=== PATIENT | male | born 1950 | race Caucasian/White ===

== ENCOUNTER → 2017-01-02 | Outpatient (CLI) | payer SELFPAY | LOC: FIMAGING 09:16 | PROVIDERS: ATTEND Specialist | DX: Z12.89 Encounter for screening for malignant neoplasm of other sites (principal); C61 Malignant neoplasm of prostate; M25.552 Pain in left hip | CPT/HCPCS: A9503 ==

== ENCOUNTER 2017-02-22 07:09 | Inpatient (IN) | payer OTHER ==
--- NOTE | 2017-02-21 14:47 | GHP ---
[f rep st] PREOP HISTORY AND PHYSICAL DATE OF ADMISSION: 02/22/2017 ADMISSION DIAGNOSIS: Prostate cancer. This is a 66-year-old gentleman, who presented with an elevated PSA of 23.9, and he had had a PSA of 14 in 2014. He had a prostate biopsy that revealed a Karishma score 7 cancer. He had a PSA density of 0.53. Prostate biopsy estimated gland size was 45 g. He had a bone scan with no metastasis and he declined genomic testing. At the present time, after consultation, he has elected to undergo ro botic-assisted radical prostatectomy. He has no preoperative erectile dysfunction. He has no genit ourinary symptoms, other than a weak flow and nocturia. He had had an AUA score preoperatively that showed a total score of 17, quality of life score was 3/mixed. PAST MEDICAL HISTORY: Hip pain, kidney stones, nocturia. PAST SURGICAL HISTORY: Shoulder surgery, and the ultrasound and biopsy of the prostate. MEDICATIONS: Have been a low-dose medication for blood pressure. ALLERGIES: None. FAMILY HISTORY: Positive for prostate cancer. SOCIAL HISTORY: Non alcohol consumption. Former smoker. . Self-employed. REVIEW OF SYSTEMS: Negative cardiac, respiratory, GI, endocrine, musculoskeletal. PHYSICAL EXAM: VITAL SIGNS: Stable. CHEST: Clear. HEART: Regular rate and rhythm. ABDOMEN: N ormal. No organomegaly, rebound, or guarding. EXTREMITIES: Lower extremities are normal. : On exam, his prostate was approximately 55 g, and it appeared to be symmetric, and the pathology revea led that he had Karishma score 3+4 cancer in the left prostate at the transition zone and at the post erior base on the left. Right apex had a small focus of [place] score 6 cancer. There is no docume nted perineural invasion and the seminal vesicles have not been biopsied. At the present time, after discussing options of therapy, he has elected to undergo bilateral pelvic lymphadenectomy and radical retropubic prostatectomy. The complications of bleeding, infection, in ability to remove all the malignancy, need for adjuvant therapy, and urinary control and sexual dysf unction issues have been outlined. He appears to understand, written and verbal consent was demian d. He is admitted for the above procedure. /[id number]/MODL
[2017-02-22] MEDS ORDERED: ceFAZolin 2 GM/DEXTROSE 100 ML IV ONE (07:16)
--- NOTE | 2017-02-22 07:16 | PDHPUP ---
History & Physical Update H&P update statement: This history and physical update is based on an assessment of the patient which was completed after admission or registration (within 24 hours), but prior to the surgery/procedure. H&P update: H&P reviewed & patient examined
[2017-02-22] MEDS ORDERED: LR 1,000 ML IV ONE (07:36)
[2017-02-22] MEDS ORDERED: LIDOCAINE 1% 2 ML INJ ID PRN (07:36)
[2017-02-22] MEDS ORDERED: BUPIVACAINE 0.5% 30 ML SDV ONE (08:11)
[2017-02-22] MEDS ORDERED: MIDAZOLAM 2 MG/2 ML VIAL IVP ONE (09:10)
--- NOTE | 2017-02-22 09:15 | PDANEPAE ---
ANE Past Medical History - Cardiovascular History Hx Hypertension: Yes Hx Arrhythmias: No Hx Chest Pain: No Hx Coronary Artery / Peripheral Vascular Disease: No Hx CHF / Valvular Disease: No Hx Palpitations: No Cardiovascular History Comment: on Lisinopril x 3 mos-well controlled - Pulmonary History Hx COPD: No Hx Asthma/Reactive Airway Disease: No Hx Recent Upper Respiratory Infection: No Hx Oxygen in Use at Home: No Hx Sleep Apnea: No Sleep Apnea Screening Result - Last Documented: Negative - Neurologic History Hx Cerebrovascular Accident: No Hx Seizures: No Hx Dementia: No - Endocrine History Hx Diabetes: No Hypothyroid: No Hyperthyroid: No Obesity: no - Renal History Hx Renal Disorders: Yes Renal History Comment: PSA elevated. Prostate bx 12-25-16 :Prostate cancer. - Liver History Hx Hepatic Disorders: No - Neurological & Psychiatric Hx Hx Neurological and Psychiatric Disorders: No - Cancer History Hx Cancer: Yes Cancer History Comment: prostate - Congenital Disorder History Hx Congenital Disorders: No - GI History GERD: no Hx Gastrointestinal Disorders: No - Other Health History Other Health History: OA - L hip pain appro 1 yr. - Chronic Pain History Chronic Pain: Yes (L hip) - Surgical History Prior Surgeries: surgery for shoulder separation ;. R hand sx; ANE Review of Systems - Exercise capacity METS (RN): 4 METS ANE Patient History - Allergies Allergies/Adverse Reactions: No Known Allergies Allergy (Verified 02/07/17 10:04) - Home Medications Home Medications: Acetaminophen [Tylenol 325mg (*)] 650 mg PO DAILY PRN 02/05/17 [Last Taken 02/21] Lisinopril [Zestril 5 mg (*)] 5 mg PO DAILY 02/05/17 [Last Taken 02/22/17] - NPO status NPO Since - Liquids (Date): 02/21/17 NPO Since - Liquids (Time): 15:00 NPO Since - Solids (Date): 02/21/17 NPO Since - Solids (Time): 15:00 - Anes Hx Anes Hx: no prior problems - Smoking Hx Smoking Status: Former smoker - Family Anes Hx Family Hx Anesthesia Complications: not aware of ANE Labs/Vital Signs - Vital Signs Blood Pressure: 125/83 Heart Rate: 63 Respiratory Rate: 16 O2 Sat (%): 98 Height: 172.72 cm Weight: 77.111 kg ANE Physical Exam - Airway Neck exam: FROM Mallampati Score: Class 1 Mouth exam: normal dental/mouth exam - Pulmonary Pulmonary: no respiratory distress - Cardiovascular Cardiovascular: regular rate and rhythym, no murmur, rub, or gallop - ASA Status ASA Status: II ANE Anesthesia Plan Anesthesia Plan: general endotracheal anesthesia
[2017-02-22] MEDS ORDERED: MIDAZOLAM 2 MG/2 ML VIAL ONE (09:21)
[2017-02-22] MEDS ORDERED: REMIFENTANIL HCL 1 MG VIAL ONE (09:28)
[2017-02-22] MEDS ORDERED: PROPOFOL 200 MG/20 ML VIAL ONE (09:28)
[2017-02-22] MEDS ORDERED: DEXAMETHASONE 4 MG/ML VIAL ONE (09:28)
[2017-02-22] MEDS ORDERED: fentaNYL 100 MCG/2 ML INJ ONE ×3 (09:28→12:47)
[2017-02-22] MEDS ORDERED: LIDOCAINE 2% 5 ML SDV ONE (09:29)
[2017-02-22] MEDS ORDERED: ROCURONIUM 50 MG/5 ML VIAL ONE ×2 (09:29→10:27)
[2017-02-22] MEDS ORDERED: ONDANSETRON 4 MG/2 ML VIAL ONE (09:29)
[2017-02-22] MEDS ORDERED: THROMBIN(HUM PLAS)/FIBRINOG/CA 5 ML VIAL TP ONE ×2 (11:18→11:25)
[2017-02-22] MEDS ORDERED: SUGAMMADEX SODIUM 200 MG/2 ML VIAL IVP ONE (11:48)
[2017-02-22] MEDS ORDERED: D5W LR 500 ML IV PRN (11:54)
[2017-02-22] MEDS ORDERED: OXYCODONE/APAP 5/325 TAB PO PRN ×2 (11:54→12:08)
[2017-02-22] MEDS ORDERED: ONDANSETRON 4 MG/2 ML VIAL IVP PRN ×2 (11:54→12:08)
[2017-02-22] MEDS ORDERED: NALOXONE HCL 0.4 MG/ML INJ IVP PRN ×2 (11:54→12:08)
[2017-02-22] MEDS ORDERED: HYDROCODONE/APAP 5/325 TAB PO PRN (11:54)
[2017-02-22] MEDS ORDERED: ACETAMINOPHEN 500 MG TAB PO PRN (11:54)
[2017-02-22] MEDS ORDERED: MEPERIDINE 25 MG/ML SYR IVP PRN (11:54)
[2017-02-22] MEDS ORDERED: PROMETHAZINE HCL 25 MG/ML INJ IVP PRN (11:54)
[2017-02-22] MEDS ORDERED: KETOROLAC 30 MG/1 ML SDV ONE (11:59)
[2017-02-22] MEDS ORDERED: ZOLPIDEM TARTRATE 5 MG TAB PO PRN (12:08)
[2017-02-22] MEDS ORDERED: ACETAMINOPHEN 325 MG TAB PO PRN (12:08)
[2017-02-22] MEDS ORDERED: HYDROmorphONE/DILAUDID 6 MG/30 ML PCA IV PRN (12:08)
[2017-02-22] MEDS ORDERED: ONDANSETRON DISINTEGRATING 4 MG TAB PO PRN (12:08)
--- NOTE | 2017-02-22 12:17 | POSTOPPROG ---
Post Op Note Date of Operation: 02/22/17 Surgeon: Basil Romo Machine Captain: Leann Anesthesiologist: Ambreen Anesthesia: GET(General Endotracheal) Pre-op Diagnosis: prostate cancer Post-op Diagnosis: dictated Procedure: RA-RRP and PLND Inf/Abcess present in the surg proc area at time of surgery?: No EBL: 50-100 Complications: none Drains: Jonnathan Carrasco (and barfield) Specimen(s): prostate, SV and nodes
[2017-02-22] MEDS: fentaNYL 100 MCG/2 ML INJ IVP PRN ×2 (12:49→12:54)
--- NOTE | 2017-02-22 13:01 | GOP ---
[f rep st] OPERATIVE REPORT DATE OF OPERATION: SURGEON: Basil Romo MD GARMENT WORKER: Brenda Noriega CFA. ANESTHESIOLOGIST: Skyler Lima DO. PREOPERATIVE DIAGNOSIS: Adenocarcinoma of the prostate. POSTOPERATIVE DIAGNOSIS: Adenocarcinoma of the prostate. PROCEDURE PERFORMED: 1. Robotic-assisted radical retropubic prostatectomy. 2. Pelvic lymph node dissection. FINDINGS: ESTIMATED BLOOD LOSS: 50 mL per anesthesia. He will be admitted for postoperative care. I will discuss the issues with his family. INDICATIONS: Preoperatively, I discussed with him the diagnosis, stage, and options of therapy, and after appropriate counseling, he elected to undergo radical prostatectomy. Complications of bleedi ng, infection, incontinence, impotence, bowel perforation, and need for further surgery have all bee n discussed. Written and verbal consent was obtained, and he appeared to be well informed. I attem pted to answer all questions to the best of my ability. His was not at any of the discussions because she did not want to be in anyone's way. That was interpretation the interpretation. I will make an effort to communicate with her postoperatively on the appropriateness of therapy for this d iagnosis and go over the surgical procedure results. DESCRIPTION OF PROCEDURE: After undergoing general anesthesia, prepped and draped in normal sterile fashion, the robotic position for pelvic surgery, and appropriate time-out, he had a Veress needle placed supraumbilically and his intraabdominal pressure was inflated to 15 mmHg pressure with CO2. Then he had a camera port placed in that site and a 12 mm payroll human resources assistant port placed to the left of the m idclavicular line on the left abdomen. Then 3 robotic arm ports of 8 mm were placed, all under visi on, and there was no intraabdominal trauma related to any of these port placements. At that point, mobilize the sigmoid colon because it had adhesions. I then was able to incise the peritoneum just at the ampulla of vas deferens and seminal vesicles, dissected those out, and hemostasis provided wi th Hem-o-loks. Then I had divided the vas deferens bilaterally and mobilized the space between the prostate and rectum making care not to cause any injury to the rectum. At that point, focused our a ttention to the anterior part of the dissection by dropping down the bladder and incising the endope lvic fascia on the right and left sides, the puboprostatics taken down sharply. Then the deep dorsa l vein was ligated with 2 M stitch 0 Vicryl sutures, and the catheter was mobile after placing that stitch. At that point, focused attention to the bladder neck, and that was incised. The prostate w as quite large, and the bladder neck was patulous after excising it. I was able to mobilize the bas e of the bladder off the base of the prostate, bring the seminal vesicle and ampulla of vas deferens anterior to the bladder neck. Then the right pedicle was taken down with Hem-o-loks and dissection . In the left side, similar attempts to preserve the neurovascular bundles. I then focused attenti on to the apex of the prostate. That was dissected out. At the end of the procedure, there was no obvious gross disease noted in the operative site. I approximated the bladder neck with 2 lateral s utures of 3-0 Vicryl, and then a Ambrosio stitch of V-Loc was used to approximate the rectal urethralis to the posterior bladder. Then the urethrovesical anastomosis was performed with a 4-0 Monocryl. All of this dissection appeared not to compromise the ureteral orifices or the ureters, and the rect um was intact with no suggestion of injury. At that point, focused our attention to the pelvic lymp h nodes, the left side being taken down first. The dissection margin was the mid aspect of the exte rnal iliac vein at its bifurcation. The obturator nerve was the depth of that dissection. Hemostas is was provided Hem-o-loks. There was no gross luke disease on the left side or the right side. S imilar dissection pattern, there were several nodes that were a bit inflammatory grossly, but there was nothing fixed or suggestion of malignancy. At that point, dropped the pressure to 5 mmHg. Ther e was no bleeding identified. Bladder gel material was placed at the anastomotic area, which had be en irrigated and noted to be watertight. Then a Jonnathan-Carrasco drain was placed in the space of Retz ius. Specimens were placed in the intraoperative bag, and then a drain was brought out through the 8 mm left-sided robot port. The payroll human resources assistant port was closed with a suture closure device. Then the s gerin brought through the supraumbilical site, which had made an incision from right to left in th e fascia, and then closed the fascia and the linea alba with a running 0 Vicryl. Subcutaneous tissu e was irrigated all sites, and 4-0 Monocryl was used to close the skin edges. The drain was sewn in place with a 3-0 silk. He tolerated the procedure well. /[id number]/MODL
--- NOTE | 2017-02-22 13:38 | POSTANESTH ---
Post Anesthetic Evaluation Cardiovascular Status: Normal, Stable Respiratory Status: Normal, Stable Level of Consciousness/Mental Status: Can Participate in Eval Pain Control: Adequate, Prn Tx Ordered Nausea/Vomiting Control: Adequate, Prn Tx Ordered Complications Possibly Related to Anesthesia: None Noted
[2017-02-22] MEDS: POTASSIUM Cl (KCl) 20 MEQ in 1/2 NS 1,000 ML IV SCH ×2 (13:51→23:05)
--- NOTE | 2017-02-22 16:10 | SOAPPROG ---
SOAP Progress Note Assessment/Plan: Assessment: Prostate cancer Acute PO check doing well Plan: cont post op care 02/22/17 16:05 Subjective: doing well Objective: Vital Signs Temp Pulse Resp BP Pulse Ox 37.0 C 85 18 133/80 H 90 L 02/22/17 14:13 02/22/17 14:13 02/22/17 14:13 02/22/17 14:13 02/22/17 14:13 Laboratory Results 02/22/17 12:45 02/21/17 02/22/17 02/23/17 05:59 05:59 05:59 Intake Total 1800 Output Total 70 Balance 1730 Physical Exam - Physical Exam General Appearance: alert Respiratory: No respiratory distress Cardiac/Chest: regular rate, rhythm Neuro/Psych: alert, oriented x 3 ICD10 Worksheet Patient Problems: Problems Problem Status Onset Prostate cancer Acute - ICD10 Problem Qualifiers (1) Prostate cancer
[2017-02-22 16:39] VITALS: RESP 16
[2017-02-23 04:56] LABS: % IMMATURE GRANULYOCYTES 0.4 % (0.0-1.1); ABSOLUTE IMMATURE GRANULOCYTES 0.03 10^3/uL (0.00-0.10); ADD DIFF? NO; ADD MORPH? NO; ADD SCAN? NO; ATYPICAL LYMPHOCYTE FLAG 0 (0-99); FRAGMENT RBC FLAG 0 (0-99); HEMATOCRIT 43.3 % (40.0-51.0); HEMOGLOBIN 14.7 g/dL (13.7-17.5); LEFT SHIFT FLG 0 (0-99); LIPEMIA HEMOLYSIS FLAG 90 (0-99); MEAN CELL HEMOGLOBIN 30.6 pg (27.9-34.1); MEAN CELL HEMOGLOBIN CONCENTR. 33.9 g/dL (32.4-36.7); MEAN CELL VOLUME 90.2 fL (81.5-99.8); MEAN PLATELET VOLUME 9.7 fL (8.7-11.7); PLATELET CLUMPS FLAG 0 (0-99); PLATELET COUNT 237 10^3/uL (150-400); RED CELL DISTRIBUTION WIDTH 12.9 % (11.5-15.2)
[2017-02-23 05:09] LABS: ANION GAP 9 mEq/L (8-16); CALCIUM 9.1 mg/dL (8.5-10.4); CARBON DIOXIDE 26 mEq/l (22-31); CHLORIDE 102 mEq/L (97-110); GLOMERULAR FILTRATION RATE > 60; GLUCOSE 93 mg/dL (70-100); POTASSIUM 5.2 mEq/L (3.5-5.2); SODIUM 137 mEq/L (134-144)
--- NOTE | 2017-02-23 07:32 | SOAPPROG ---
SOAP Progress Note Assessment/Plan: Assessment: Prostate cancer Acute POD #1 doing well Plan: cont post op care, DC home no pain meds 02/23/17 13:57 Subjective: doing well, gas noted, home seems ok Objective: Vital Signs Temp Pulse Resp BP Pulse Ox 36.9 C 78 16 119/77 93 02/23/17 07:24 02/23/17 07:24 02/23/17 07:24 02/23/17 07:24 02/23/17 07:24 Laboratory Results 02/23/17 04:33 02/23/17 04:33 02/22/17 02/23/17 02/24/17 05:59 05:59 05:59 Intake Total 3660 1212 Output Total 2480 Balance 1180 1212 Physical Exam - Physical Exam General Appearance: WD/WN Neck: supple Respiratory: No respiratory distress Cardiac/Chest: regular rate, rhythm Abdomen: soft Back: No CVA tenderness Extremities: non-tender, No calf tenderness, No Qiana's sign Neuro/Psych: alert, oriented x 3 ICD10 Worksheet Patient Problems: Problems Problem Status Onset Prostate cancer Acute - ICD10 Problem Qualifiers (1) Prostate cancer
[2017-02-23] MEDS ORDERED: LISINOPRIL 5 MG TAB PO SCH (09:00)
[2017-02-23 11:34] VITALS: BP 104/69; PULSE 90; TEMP 98; O2SAT 90
--- NOTE | 2017-02-23 16:46 | ASDISCHSUM ---
Discharge Information Plan Status:Home with No Needs Medically Cleared to Leave: Discharge Date:02/23/2017 03:50 PM CM D/C Disposition:Home, Routine, Self-Care ADT D/C Disposition:Home, Routine, Self-Care Projected Discharge Date:02/23/2017 03:50 PM Transportation at D/C:Family Discharge Delay Reason: Follow-Up Date:02/23/2017 03:50 PM Discharge Slot: Final Diagnosis: Placement Information Patient Contact Information Contact Name:TIARRA Relationship: Address:[address] Work Phone: [facility]:[place] Alternate Phone: [facility]/Zip Code:[place] [address] Email: Financial Information Financial Class:HMO and PPO Plans Primary Plan Desc:DELFINO SHABAZZ Primary Plan Number:[id number] Secondary Plan Desc: Secondary Plan Number: Assessment Information Intervention Information
== END 2017-02-23 15:50 | disposition home or self-care (01) | DRG 708 ==
LOC: F3N 07:09 → F1N 07:47
PROVIDERS: ADMIT Specialist; ATTEND Specialist
DX: C61 Malignant neoplasm of prostate (principal); I10 Essential (primary) hypertension; Z87.891 Personal history of nicotine dependence
CPT/HCPCS: J0690; J1100; J1885; J2250; J2405; J2704; J3010

== ENCOUNTER 2018-01-04 07:15 | Inpatient (IN) | payer OTHER ==
--- NOTE | 2018-01-04 06:22 | PDHPUP ---
History & Physical Update H&P update statement: This history and physical update is based on an assessment of the patient which was completed after admission or registration (within 24 hours), but prior to the surgery/procedure. H&P update: H&P reviewed & patient examined, no change in patient's condition since H&P completed
[~2018-01-04 07:15] MED LIST: ROPIVACAINE 0.2% 80 MG, EPINEPHrine 0.2 MG, KETOROLAC TROMETHAMINE 30 MG in SYRINGE 0 ML IU ONE; TRANEXAMIC ACID 3,000 MG in NS (SYRINGE) 50 ML IRR ONE
[2018-01-04] MEDS ORDERED: TRANEXAMIC ACID 3,000 MG/50 ML BAG IRR ONE (09:28)
[2018-01-04] MEDS ORDERED: ACETAMINOPHEN 325 MG TAB PO ONE (10:25)
[2018-01-04] MEDS ORDERED: FAMOTIDINE 20 MG TAB PO ONE (10:25)
[2018-01-04] MEDS ORDERED: DEXAMETHASONE 4 MG/ML VIAL IVP ONE (10:25)
[2018-01-04] MEDS ORDERED: ceFAZolin 2 GM/DEXTROSE 100 ML IV ONE (10:25)
[2018-01-04] MEDS ORDERED: LR 1,000 ML IV ONE (10:28)
--- NOTE | 2018-01-04 11:44 | PDANEPAE ---
ANE History of Present Illness L VANDANA ANE Past Medical History - Cardiovascular History Hx Hypertension: Yes Hx Arrhythmias: No Hx Chest Pain: No Hx Coronary Artery / Peripheral Vascular Disease: No Hx CHF / Valvular Disease: No Hx Palpitations: No Cardiovascular History Comment: on Lisinopril x 3 mos-well controlled - Pulmonary History Hx COPD: No Hx Asthma/Reactive Airway Disease: No Hx Recent Upper Respiratory Infection: No Hx Oxygen in Use at Home: No Hx Sleep Apnea: No Sleep Apnea Screening Result - Last Documented: Negative - Neurologic History Hx Cerebrovascular Accident: No Hx Seizures: No Hx Dementia: No - Endocrine History Hx Diabetes: No - Renal History Hx Renal Disorders: Yes Renal History Comment: Prostate bx 12-25-16 - Liver History Hx Hepatic Disorders: No - Neurological & Psychiatric Hx Hx Neurological and Psychiatric Disorders: No - Cancer History Hx Cancer: Yes Cancer History Comment: prostate - Congenital Disorder History Hx Congenital Disorders: No - GI History Hx Gastrointestinal Disorders: No - Other Health History Other Health History: OA - L HIP - Chronic Pain History Chronic Pain: Yes (L hip) - Surgical History Prior Surgeries: PROSTATECTOMY. surgery for shoulder separation ;. R hand sx; ANE Review of Systems Review of Systems: - Exercise capacity METS (RN): 4 METS ANE Patient History - Allergies Allergies/Adverse Reactions: No Known Allergies Allergy (Verified 02/07/17 10:04) - Home Medications Home Medications: Lisinopril [Zestril 5 mg (*)] 5 mg PO DAILY 02/05/17 [Last Taken 01/03/18] Cyclobenzaprine [Flexeril 10 MG (*)] 10 mg PO TID PRN 01/04/18 [Last Taken Unknown] celeCOXIB [Celebrex (*)] 200 mg PO DAILY 01/04/18 [Last Taken Unknown] oxyCODONE IR [Oxycodone Ir (*)] 5 mg PO Q3-4PRN PRN 01/04/18 [Last Taken Unknown ] - NPO status NPO Status: no food or drink >8 hours NPO Since - Liquids (Date): 01/04/18 NPO Since - Liquids (Time): 08:30 NPO Since - Solids (Date): 01/03/18 NPO Since - Solids (Time): 12:00 - Anes Hx Anes Hx: no prior problems - Smoking Hx Smoking Status: Former smoker - Alcohol Use Alcohol Use: None - Family Anes Hx Family Anes Hx: none Family Hx Anesthesia Complications: NEG ANE Labs/Vital Signs - Vital Signs Blood Pressure: 136/99 Heart Rate: 84 Respiratory Rate: 16 O2 Sat (%): 96 Height: 170.18 cm Weight: 83.915 kg ANE Physical Exam - Airway Neck exam: FROM Mallampati Score: Class 2 Mouth exam: normal dental/mouth exam - Pulmonary Pulmonary: no respiratory distress, clear to auscultation - Cardiovascular Cardiovascular: regular rate and rhythym, no murmur, rub, or gallop - ASA Status ASA Status: II ANE Anesthesia Plan Anesthesia Plan: GA with mask, spinal
[2018-01-04] MEDS ORDERED: MIDAZOLAM 2 MG/2 ML VIAL IVP ONE (11:45)
[2018-01-04] MEDS ORDERED: PROPOFOL/EMULSION 500 MG/50 ML BOTTLE IV ONE ×2 (12:05→13:13)
--- NOTE | 2018-01-04 13:42 | POSTOPPROG ---
Post Op Note Date of Operation: 01/04/18 Surgeon: Bhanu Miguel Fabrication And Layout Craftsman: broderick miguel Anesthesiologist: dr. veliz Anesthesia: Spinal Pre-op Diagnosis: left hip OA Post-op Diagnosis: same Indication: left hip pain Procedure: L VANDANA ant approach Findings: severe hip OA Inf/Abcess present in the surg proc area at time of surgery?: No EBL: 100-500
[2018-01-04] MEDS ORDERED: METOCLOPRAMIDE 10 MG/2 ML VIAL IVP PRN (13:43)
[2018-01-04] MEDS ORDERED: TEMAZEPAM 15 MG CAP PO PRN (13:43)
[2018-01-04] MEDS ORDERED: BISACODYL 10 MG SUPP PR PRN (13:43)
[2018-01-04] MEDS ORDERED: diphenhydrAMINE 25 MG CAP PO PRN (13:43)
[2018-01-04] MEDS ORDERED: PROMETHAZINE HCL 25 MG SUPPR PR PRN (13:43)
[2018-01-04] MEDS ORDERED: ONDANSETRON DISINTEGRATING 4 MG TAB PO PRN (13:43)
[2018-01-04] MEDS ORDERED: PROMETHAZINE HCL 25 MG/ML INJ IVP PRN (13:43)
[2018-01-04] MEDS ORDERED: MAGNESIUM HYDROXIDE 30 ML UDCUP PO PRN (13:43)
[2018-01-04] MEDS ORDERED: LACTULOSE 20 GM/30 ML UDCUP PO PRN (13:43)
[2018-01-04] MEDS ORDERED: ONDANSETRON 4 MG/2 ML VIAL IVP PRN ×2 (13:43→13:50)
[2018-01-04] MEDS ORDERED: DIPHENOXYLATE/ATROPINE LOMOTIL 1 TAB PO PRN (13:43)
[2018-01-04] MEDS ORDERED: POLYETHYLENE GLYCOL 3350 17 GM PKT PO PRN (13:43)
[2018-01-04] MEDS ORDERED: CYCLOBENZAPRINE 10 MG TAB PO PRN (13:43)
[2018-01-04] MEDS ORDERED: oxyCODONE IR 5 MG TAB PO PRN (13:50)
[2018-01-04] MEDS ORDERED: NALOXONE HCL 0.4 MG/ML INJ IVP PRN (13:50)
[2018-01-04] MEDS ORDERED: HYDROmorphONE/DILAUDID 1 MG/ML INJ IVP PRN (13:50)
[2018-01-04] MEDS ORDERED: ACETAMINOPHEN 500 MG TAB PO PRN (13:50)
[2018-01-04] MEDS ORDERED: fentaNYL 100 MCG/2 ML INJ IVP PRN (13:50)
[2018-01-04] MEDS ORDERED: HYDROCODONE/APAP 5/325 TAB PO PRN (13:50)
--- NOTE | 2018-01-04 13:51 | POSTANESTH ---
Post Anesthetic Evaluation Cardiovascular Status: Normal, Stable, Similar to Pre-Op Cond Respiratory Status: Normal, Stable, Similar to Pre-op Cond. Level of Consciousness/Mental Status: Can Participate in Eval, Alert and Oriented Pain Control: Adequate, Prn Tx Ordered Nausea/Vomiting Control: Adequate, Prn Tx Ordered Complications Possibly Related to Anesthesia: None Noted
--- NOTE | 2018-01-04 13:56 | PDMN ---
Medical Necessity Medical necessity: [facility] [place], [place] S560 Hip Arthroplasty. 67 y/o s/p left total hip arthroplasty, anterior approach. Medicare Inpatient only.
[2018-01-04] MEDS ORDERED: LR 1,000 ML IV SCH (14:00)
[2018-01-04] MEDS: ACETAMINOPHEN 325 MG TAB PO SCH (17:35)
[2018-01-04] MEDS: oxyCODONE IR 5 MG TAB PO PRN (20:07)
[2018-01-04] MEDS: SENNOSIDES/DOCUSATE SODIUM TAB PO SCH (20:08)
[2018-01-04] MEDS: ASPIRIN 81 MG CHEWABLE TAB PO SCH (20:08)
[2018-01-04] MEDS: ceFAZolin 2 GM/DEXTROSE 100 ML IV SCH (20:08)
[2018-01-04] MEDS: FAMOTIDINE 20 MG TAB PO SCH (20:08)
[2018-01-05] MEDS: ACETAMINOPHEN 325 MG TAB PO SCH ×2 (04:14→04:24)
[2018-01-05] MEDS: oxyCODONE IR 5 MG TAB PO PRN ×2 (04:24→08:32)
[2018-01-05] MEDS: ceFAZolin 2 GM/DEXTROSE 100 ML IV SCH (04:24)
[2018-01-05 07:23] VITALS: BP 149/91
[2018-01-05] MEDS ORDERED: PNEUMOC 13-VAL CONJ-DIP CRM/PF 0.5 ML SYR IM ONE (07:38)
[2018-01-05] MEDS: FAMOTIDINE 20 MG TAB PO SCH (08:30)
[2018-01-05] MEDS: ASPIRIN 81 MG CHEWABLE TAB PO SCH (08:31)
[2018-01-05] MEDS: SENNOSIDES/DOCUSATE SODIUM TAB PO SCH (08:31)
[2018-01-05] MEDS ORDERED: LISINOPRIL 5 MG TAB PO SCH (09:00)
--- NOTE | 2018-01-05 10:55 | SOAPPROG ---
SOAP Progress Note Assessment/Plan: Assessment: Prabha is doing well POD 1 s/p L VANDANA pain is well controlled VTE ppx: recommend aspirin 81 mg BID d/c to home today Plan: 01/05/18 10:52 01/05/18 10:53 Subjective: prabha is doing well, mild pain, pleased with recovery, denies SOB ,chest pain and N/V. Objective: Vital Signs Temp Pulse Resp BP Pulse Ox 36.5 C 81 16 149/91 H 96 01/05/18 07:22 01/05/18 07:22 01/05/18 07:22 01/05/18 08:30 01/05/18 07:22 Laboratory Results 01/05/18 04:28 01/04/18 01/05/18 01/06/18 05:59 05:59 05:59 Intake Total 3525 Output Total 1650 400 Balance 1875 -400 LLE incision dressing is clean and dry, NVI, +pf/df ICD10 Worksheet Patient Problems: Problems Problem Status Onset Primary localized osteoarthritis of left hip Acute Prostate cancer Acute
--- NOTE | 2018-01-05 16:37 | GOP ---
[f rep st] OPERATIVE REPORT DATE OF OPERATION: 01/04/2018 SURGEON: Derek Roach MD CHOIR DIRECTOR: Lisbet Roach PA-C. ANESTHESIA: Spinal. PREOPERATIVE DIAGNOSIS: Left hip osteoarthritis. POSTOPERATIVE DIAGNOSIS: Left hip osteoarthritis. PROCEDURE PERFORMED: Left total hip arthroplasty. FINDINGS: ESTIMATED BLOOD LOSS: 200 cc. INDICATIONS: The patient has progressively worsening arthritis of the hip which has failed medical m anagement. The patient understands the treatment options including continued non-operative care and has selected surgical intervention. The patient has decided to undergo total hip arthroplasty via th e direct anterior approach, understanding the risks of the procedure including, but not limited to, n eurovascular injury, infection, persistent pain, component wear and loosening, deep venous thrombosis , pulmonary embolism, limb length inequality, hip instability (including dislocation), and intra-oper ative fractures. DESCRIPTION OF PROCEDURE: After proper identification of the patient including verification and milind ing the surgical site, the patient was brought to the operating room and placed in the supine positio n. All bony prominences were well padded. Anesthesia was induced without complication and intraveno us prophylactic antibiotics were administered prior to skin incision. The operative leg was placed in the Trumpf Arch table extension and the well leg in a [place] leg ho lder. The patient was prepped and draped in the usual sterile fashion. The C-arm was draped for int ra-operative fluoroscopy to check acetabular position, femoral component position including leg lengt h and femoral offset. Attention was then drawn to surgical exposure of the hip. An incision was made with a #10 [place] r blade starting 3 cm lateral and 3 cm distal to the anterior superior iliac spine measuring 8-10 cm and coursing distally toward the greater trochanter. The skin and subcutaneous tissues were divided sharply down to the fascia esa. The fascia esa was incised in line with the skin incision exposing the underlying tensor fascia esa muscle. The muscle was bluntly elevated from the fascia and the f irst extracapsular Cobra retractor was placed laterally at the junction of the superior femoral neck and greater trochanter. The lateral femoral circumflex vessels were identified, cauterized, and divi ded with the Aquamantys bipolar cautery. The deep investing fascia of the TFL was divided to allow p danuta mobilization of the muscle preventing damage during the retraction. The reflected head of the rectus femoris muscle was elevated off the anterior hip capsule and a medial Cobra retractor was plac ed just proximal to the lesser trochanter. The anterior capsulotomy was made sharply from the superolateral acetabulum to the saddle junction of the superior femoral neck and greater trochanter, then coursing inferomedial towards the lesser troc hanter. The retractors were then placed in the intracapsular position for femoral neck osteotomy. C orresponding to pre-operative templating, the osteotomy was made with the oscillating saw carefully p rotecting the greater trochanter and soft tissues. The femoral head was removed from the acetabulum with a corkscrew and confirmed to be severely arthritic with exposed bone, deformity and osteophytes. Similar findings were confirmed in the acetabulum. The Arch table extension was then placed in 40 degrees external rotation. Attention was then drawn to the acetabular preparation. After placement of the anterior and posterio r Cobra retractors outside the labrum and intracapsular, the circumferential labrum was removed sharp ly. The foveal contents were then removed and hemostasis obtained with cautery. The first reamer selected was sized using the removed femoral head. Reaming began with medialization and then commenced in 2 mm increments at 45 degrees of abduction and 15 degrees of anteversion using fluoroscopic navigation. Reaming ceased 1 mm less than the definitive acetabular component and alek esponded to the pre-operative templating. The final acetabular component was inserted using fluorosc opy to achieve proper orientation yielding excellent purchase and stability in the acetabulum. The f inal acetabular liner was then placed and its seating confirmed. Attention was then turned to the femur. The Arch table extension was placed in extension and adducti on, delivering the osteotomized femoral neck into the wound. A 2-pronged femoral elevator was placed at the calcar and another at the tip of the greater trochanter. The posterolateral capsule was rele ased with cautery allowing mobilization of the femur lateral and anterior for preparation. The exter nal rotators were visualized and preserved. A curette and rongeur were used to open the starting poi nt for broaching. Serial broaching started with the #0 broach and ended with the broach that exhibit ed excellent fit in the proximal femur. A change in pitch during mallet strikes was accompanied by t he inability to advance the broach any further. The trial reduction was performed and fluoroscopic n avigation was utilized to check limb length. Adjustments were made to equalize limb length according ly. After the final trials were accepted they were removed and the wound was copiously lavaged. The femo ral component was seated to the same depth as the final broach and the femoral head was impacted onto the clean trunnion. The hip was then reduced for the final time and once more fluoroscopy was used to check that limb length equality was achieved. The wound was irrigated and closed in layers, the fascia esa with 2-0 Quill, the subcutaneous tissue with 2-0 Quill, and the skin with Dermabond. Sterile dressings were applied. Final sharps and spon ge counts were accurate. The patient was then transferred to a hospital bed and brought to the [facility] room in stable condition. ANESTHESIA: Spinal. IMPLANTS: Accolade II, size 6, 127 acetabular component, 4 mm titanium Trident II, 54 mm Trident II liner, Trident X3, 36 mm, head is a Biolox Delta 36 mm minus 5. NAME OF PROCEDURE: Total hip arthroplasty with x-ray. /[id number]/MODL
--- NOTE | 2018-01-11 02:33 | GDS ---
[f rep st] DISCHARGE SUMMARY ADMISSION DIAGNOSIS: Left hip osteoarthritis. DISCHARGE DIAGNOSIS: Left hip osteoarthritis. PROCEDURE: Left total hip arthroplasty. VTE PROPHYLAXIS: Recommend aspirin 81 mg twice a day for 4 weeks. BRIEF DESCRIPTION OF HOSPITAL STAY: Patient was admitted for an elective joint arthroplasty. The pa kristopher tolerated the procedure well and has passed physical therapy. The patient was given appropriat e antibiotic prophylaxis and venous thromboembolism prophylaxis. The patient's pain was well control led on oral pain medication, patient was holding down food, and had urinated. Decision was made to d ischarge the patient. The patient was given post-operative prescriptions pre-operatively. PLAN: To follow up as Scheduled with Dr. Roach's office on January 24 at 1:30. /[id number]/MODL
== END 2018-01-05 12:20 | disposition home or self-care (01) | DRG 470 ==
LOC: F3N 10:13
PROVIDERS: ADMIT Orthopaedic Surgery; ATTEND Orthopaedic Surgery
PROC: 0SRB04Z Replacement of Left Hip Joint with Ceramic on Polyethylene Synthetic Substitute, Open Approach (ICD-10-PCS; principal; 2018-01-04 12:15)
DX: M16.12 Unilateral primary osteoarthritis, left hip (principal); Z23 Encounter for immunization; I10 Essential (primary) hypertension; Z85.46 Personal history of malignant neoplasm of prostate
CPT/HCPCS: 97116-GP; 97161-GP; G0009; G8978-GP-CJ; G8979-GP-CI; G8980-GP-CI; J0171; J0690; J1100; J1885; J2250; J2704; J2795